=== PATIENT | male | born 1940 | race Caucasian/White ===

== ENCOUNTER → 2017-02-28 | Outpatient (CLI) | payer MEDICARE | END | disposition home or self-care (01) | LOC: PCVCIMAG 10:43 | PROVIDERS: ATTEND Internal Medicine | DX: I65.23 Occlusion and stenosis of bilateral carotid arteries (principal); I25.10 Atherosclerotic heart disease of native coronary artery without angina pectoris; I10 Essential (primary) hypertension; E78.00 Pure hypercholesterolemia, unspecified; I77.9 Disorder of arteries and arterioles, unspecified; E11.9 Type 2 diabetes mellitus without complications | CPT/HCPCS: 80061; 93005; 93880; G0463 ==

== ENCOUNTER → 2018-03-03 | Outpatient (CLI) | payer MEDICARE | END | disposition home or self-care (01) | LOC: PCVCCLINIC 11:30 | DX: I25.10 Atherosclerotic heart disease of native coronary artery without angina pectoris (principal); E78.5 Hyperlipidemia, unspecified; I65.23 Occlusion and stenosis of bilateral carotid arteries; I10 Essential (primary) hypertension; E11.9 Type 2 diabetes mellitus without complications; Z87.891 Personal history of nicotine dependence | CPT/HCPCS: 80061; 93005; G0463 ==

== ENCOUNTER → 2018-10-16 | Outpatient (CLI) | payer MEDICARE | END | disposition home or self-care (01) | LOC: PCVCCLINIC 14:53 | PROVIDERS: ATTEND Internal Medicine | DX: I25.10 Atherosclerotic heart disease of native coronary artery without angina pectoris (principal); R94.31 Abnormal electrocardiogram [ECG] [EKG]; E78.5 Hyperlipidemia, unspecified; I65.23 Occlusion and stenosis of bilateral carotid arteries; I10 Essential (primary) hypertension; E11.9 Type 2 diabetes mellitus without complications; I25.2 Old myocardial infarction; E78.00 Pure hypercholesterolemia, unspecified; Z72.89 Other problems related to lifestyle; Z87.891 Personal history of nicotine dependence; Z79.84 Long term (current) use of oral hypoglycemic drugs | CPT/HCPCS: 36415; 80061; 93005; G0463 ==

== ENCOUNTER → 2019-01-22 | Outpatient (CLI) | payer MEDICARE | END | disposition home or self-care (01) | LOC: PCVCCLINIC 11:20 | PROVIDERS: ATTEND Internal Medicine | DX: I10 Essential (primary) hypertension (principal); E11.9 Type 2 diabetes mellitus without complications; E78.5 Hyperlipidemia, unspecified; E78.00 Pure hypercholesterolemia, unspecified | CPT/HCPCS: 36415 ==

== ENCOUNTER → 2019-04-29 | Outpatient (CLI) | payer MEDICARE ==
--- NOTE | 2019-04-29 09:50 | PCVCIMAG ---
APPROVED REPORT Indications Stenosis Risk Factors Hypertension: Hyperlipidemia CAD, Diabetes, Doppler Spectral Velocity Analysis PSV / EDVPSV / EDV ECA (R) 119 / 9 cm/sECA (L) 104 / 7 cm/s dICA (R) 70 / 13 cm/sdICA (L) 75 / 17 cm/s Carin (R) 62 / 14 cm/smICA (L) 86 / 19 cm/s pICA (R) 140 / 12 cm/spICA (L) 85 / 6 cm/s Bulb (R) 119 / 9 cm/sBulb (L) 75 / 9 cm/s dCCA (R) 97 / 10 cm/sdCCA (L) 93 / 12 cm/s mCCA (R) 100 / 13 cm/smCCA (L) 102 / 7 cm/s Vert (R) 49 / 8 cm/sVert (L) 59 / 3 cm/s ICA/CCA 1.44ICA/CCA 0.92 Basic Measurements Blood Pressure: Pulses: Right Left RightLeft Brachial(Sitting) 142/77uvTh365/60mmHgTemporal Real Time B-Mode Imaging Vert. (R)AntegradeVert. (L)Antegrade Findings The right carotid bulb has moderate calcified plaque. The right proximal internal carotid artery shows 40-50% stenosis. The right common carotid artery shows no significant stenosis. The right external carotid artery shows >50% stenosis. The left carotid bulb has moderate plaque. The left proximal internal carotid artery shows <40% stenosis. The left common carotid artery shows no significant stenosis. The left external carotid artery shows no significant stenosis. Conclusion 1. Right internal carotid artery stenosis (40-50%). 2. Left internal carotid artery stenosis (<40%) 3. Antegrade vertebral flow
--- NOTE | 2019-04-29 11:03 | PCVCIMAG ---
APPROVED REPORT Study performed: 04/29/2019 09:11:56 Exam: Stress Echocardiogram Indication: CAD s/p PCI, dm, htn, hlp Patient Location: Echo lab Stress Nurse: Lorna Huddleston RN Status: routine Ht: 5 ft 9 in HR: 61 bpm BP: 142/60 mmHg Rhythm: NSR Procedure The patient underwent an Exercise Stress Test using the Juancarlos Protocol. Blood pressure, heart rate, and EKG were monitored. An Echocardiogram was performed by manufacturing process technician in four stages in quad fashion. At peak stress, four selected images were obtained and placed side by side with resting images for comparison. Stress Test Details Stress Test: Exercise stress testing was performed using a Juancarlos protocol. HR Resting HR: 61 bpmMax Heart Rate (APMHR): 143 bpm Max HR Achieved: 146 bpmTarget HR (85% APMHR): 121 bpm % of APMHR: 102 Recovery HR: 79 bpm HR response to stress: Normal HR response to stress BP Resting BP: 142/60 mmHg Max BP: 200/74 mmHg Recovery BP: 156/68 mmHg BP response to stress: Normal blood pressure response to stress. ECG Resting ECG: Sinus Rhythm w/ PVCs, nonspecific ST and T wave abnormality Stress ECG: Sinus Rhythm, intermittent right bundle branch block aberrancy ST Change: Horizontal ST depression Maximum ST Deviation: 0.5 mm Arrhythmia: VPC's, APC's Recovery ECG: Sinus Rhythm w/ PVCs Recovery ST Change: Normal Recovery ST Deviation: 0 mm Recovery Arrhythmia: APC, VPC Clinical Reason for Termination: hip pain, Maximal effort Stress Symptoms: hip pain Exercise duration: 9 min 56 sec Highest Stage Achieved: Stage 4: 4.2 mph at 16% grade. Exercise capacity: 13.1 METs Overall Exercise Capacity for Age: Good Scale: Active Angina Score: None Stress ECG Conclusion Richter Treadmill Score is 6.5 which is Low risk. Pre-Stress Echo The resting Echocardiogram showed normal left ventricular contractility with an estimated Ejection Fraction of about >55%. The resting Echocardiogram demonstrated wall motion abnormality in the basal inferior . Small region of hypokinesis involving the base of the inferior wall Post-Stress Echo The stress Echocardiogram showed normal left ventricular contractility with an estimated Ejection Fraction of about 60-65%. No new regional wall motion abnormalities Conclusion Clinical Response: Non-ischemic Exercise Capacity: Superior Stress ECG Response: Equivocal Stress Echo Images: Non-ischemic Non-ischemic stress echocardiogram with maximal exercise stress Normal global left ventricular systolic function with minimal hypokinesis involving the base of the inferior wall Other Information Study Quality: Adequate <Conclusion> Non-ischemic stress echocardiogram with maximal exercise stress Normal global left ventricular systolic function with minimal hypokinesis involving the base of the inferior wall
== END ==
LOC: PCVCIMAG 09:07
PROVIDERS: ATTEND Internal Medicine
DX: E78.5 Hyperlipidemia, unspecified (principal); I65.23 Occlusion and stenosis of bilateral carotid arteries; E11.9 Type 2 diabetes mellitus without complications
CPT/HCPCS: 93325; 93351; 93880

== ENCOUNTER → 2019-06-12 | Outpatient (CLI) | payer MEDICARE | END | disposition home or self-care (01) | LOC: PCVCCLINIC 14:30 | PROVIDERS: ATTEND Internal Medicine | DX: E78.5 Hyperlipidemia, unspecified (principal); I25.10 Atherosclerotic heart disease of native coronary artery without angina pectoris; I10 Essential (primary) hypertension; E11.9 Type 2 diabetes mellitus without complications; Z87.891 Personal history of nicotine dependence | CPT/HCPCS: 36415 ==

== ENCOUNTER → 2019-08-21 | Outpatient (CLI) | payer MEDICARE | END | disposition home or self-care (01) | LOC: PCVCCLINIC 13:41 | PROVIDERS: ATTEND Internal Medicine | DX: I25.10 Atherosclerotic heart disease of native coronary artery without angina pectoris (principal); I10 Essential (primary) hypertension; I49.3 Ventricular premature depolarization; R55 Syncope and collapse; I65.23 Occlusion and stenosis of bilateral carotid arteries; E78.00 Pure hypercholesterolemia, unspecified; I44.0 Atrioventricular block, first degree; R94.31 Abnormal electrocardiogram [ECG] [EKG]; I25.2 Old myocardial infarction; Z90.09 Acquired absence of other part of head and neck; Z96.651 Presence of right artificial knee joint; Z96.643 Presence of artificial hip joint, bilateral; Z83.3 Family history of diabetes mellitus; Z82.49 Family history of ischemic heart disease and other diseases of the circulatory system; Z87.891 Personal history of nicotine dependence; Z72.89 Other problems related to lifestyle; Z79.899 Other long term (current) drug therapy | CPT/HCPCS: 93005; G0463 ==

== ENCOUNTER → 2019-09-30 | Outpatient (CLI) | payer MEDICARE ==
--- NOTE | 2019-09-30 09:28 | PCVCIMAG ---
APPROVED REPORT Study performed: 09/30/2019 08:42:27 EXAM: Comprehensive 2D, Doppler, and color-flow Echocardiogram Patient Location: Echo lab Status: routine BSA: 1.94 HR: 54 bpmBP: 146/60 mmHg Rhythm: Bradycardia w/ PVCs Other Information Study Quality: Adequate Risk Factors: Cardiac Risk Factors: HTN Indications Bradycardia CAD PVCs 2D Dimensions IVSd: 11.06 (7-11mm) LVDd: 47.19 mm PWd: 10.13 (7-11mm)Ascending Ao: 39.88 (22-36mm) LVDs: 30.89 (25-40mm) Left Atrium: 45.22 (27-40mm) Aortic Root: 37.86 mm LV Single Plane 4CH: 56.79 % LV Single Plane 2CH: 59.91 % Biplane EF: 58.9 % Volumes Left Atrial Volume (Systole) Single Plane 4CH: 98.67 mLSingle Plane 2CH: 97.78 mL LA ESV Index: 52.00 mL/m2 Aortic Valve AoV Peak Taqueria.: 1.37 m/s AO Peak Gr.: 7.48 mmHgLVOT Max P.56 mmHg LVOT Max V: 0.80 m/s Mitral Valve E/A Ratio: 0.6 MV Decel. Time: 324.40 ms MV E Max Taqueria.: 0.39 m/s MV A Taqueria.: 0.61 m/s IVRT: 134.95 ms Pulmonary Valve PV Peak Taqueria.: 0.77 m/sPV Peak Gr.: 2.42 mmHg Pulmonary Vein P Vein S: 0.36 m/sP Vein A: 0.35 m/s P Vein D: 0.52 m/sP Vein A Dur.: 155.7 msec P Vein S/D Ratio: 0.69 Tricuspid Valve TR Peak Taqueria.: 2.10 m/s TR Peak Gr.: 17.60 mmHg Left Ventricle The left ventricle is normal size. There is normal LV segmental wall motion. There is normal left ventricular wall thickness. Left ventricular systolic function is normal. The left ventricular ejection fraction is within the normal range. LVEF is 55-60%. Mild diastolic dysfunction is present (impaired relaxation pattern). Right Ventricle The right ventricle is normal size. The right ventricular systolic function is normal. Atria Left atrium is severely dilated. The right atrium size is normal. Aortic Valve The aortic valve is normal in structure. No aortic regurgitation is present. There is no aortic valvular stenosis. Mitral Valve The mitral valve is normal in structure. There is no mitral valve regurgitation noted. No evidence of mitral valve stenosis. Tricuspid Valve The tricuspid valve is normal in structure. Trace tricuspid regurgitation with PAP of 25 mmHg. Pulmonic Valve The pulmonary valve is normal in structure. Trace pulmonic regurgitation. Great Vessels The aortic root is normal in size. Ascending aorta is mildly dilated (4.0cm). IVC is normal in size and collapses >50% with inspiration. Pericardium There is no pericardial effusion. There is no pleural effusion. <Conclusion> Left ventricular systolic function is normal. There is normal LV segmental wall motion. LVEF is 55-60%. Mild diastolic dysfunction Left atrium is severely dilated. The aortic valve is normal in structure. No aortic regurgitation or stenosis The mitral valve is normal in structure. No mitral valve regurgitation. Trace tricuspid regurgitation with pulmonary artery pressure of 25 mmHg. Ascending aorta is mildly dilated (4.0cm). There is no pericardial effusion.
== END | disposition home or self-care (01) ==
LOC: PCVCIMAG 08:31
PROVIDERS: ATTEND Internal Medicine
DX: I25.10 Atherosclerotic heart disease of native coronary artery without angina pectoris (principal); E11.9 Type 2 diabetes mellitus without complications; I49.3 Ventricular premature depolarization; I11.9 Hypertensive heart disease without heart failure; E78.00 Pure hypercholesterolemia, unspecified; Z90.09 Acquired absence of other part of head and neck; Z96.643 Presence of artificial hip joint, bilateral; Z83.3 Family history of diabetes mellitus; Z82.49 Family history of ischemic heart disease and other diseases of the circulatory system; Z87.891 Personal history of nicotine dependence
CPT/HCPCS: 36415; 93306; G0463